=== PATIENT | male | born 1965 | race Caucasian/White ===

== ENCOUNTER 2017-07-05 17:37 | Emergency (ER) | payer BC, OTHER ==
[~2017-07-05] VITALS: Ht 177.8 cm; Wt 108.5 kg
[2017-07-05 17:49] VITALS: BP 192/96; TEMP 37; Ht 177.8 cm; Wt 108.5 kg
[2017-07-05] MEDS ORDERED: ATOR-24 PO (19:28)
--- NOTE | 2017-07-05 19:45 | DIAGNOSTIC IMAGING REPORT ---
RIGHT LOWER EXTREMITY VENOUS DOPPLER CLINICAL HISTORY: Right leg swelling. COMPARISON STUDY: No previous studies for comparison. TECHNIQUE: Sonography of the deep venous system of the right lower extremity was performed. Compression and augmentation were evaluated. FINDINGS: The right common femoral, superficial femoral and popliteal veins were compressible. Augmentation was normal. Flow was shown within the deep calf vessels. No sonographic abnormality was identified within the posterior right calf at site of maximal swelling. IMPRESSION: No evidence of deep venous thrombus within the right lower extremity. Electronically signed by: Fly Cunningham M.D. 07/05/2017 7:44 PM Dictated Date/Time: 07/05/2017 7:43 PM
[2017-07-05 20:18] VITALS: PULSE 65; O2SAT 100
--- NOTE | 2017-07-06 01:58 | EMERGENCY ROOM VISIT NOTE ---
ED Visit Note First contact with patient: 17:52 Chief Complaint: Right lower leg swelling. History of Present Illness: Mr. Santamaria is a 52-year-old white male who ambulates into the ED complaining of right lower leg swelling. Patient was referred from the [facility] for evaluation of DVT with a venous Doppler ultrasound. Historically patient reports he's been doing a lot of traveling the car. He reports approximately 2 weeks ago he started noticing some mild swelling of the right lower leg. He reports when he went to bed or elevated the leg the swelling mostly resolved but then would return the next day. Associated with his swelling he reports he was not having merly pain but his "leg just did not feel right." He has not taken any medications for his symptoms prior to arrival at the hospital. He denies any associated symptoms including chest pain /discomfort, shortness of breath, wheezing, palpitations, back pain, fevers, chills, skin eruptions, skin color changes, recent trauma, right leg weakness/ numbness/tingling, previous clots, cramping. Review of Systems: As noted above in history of present illness. Past Medical History: Dyslipidemia, migraine variant. Current Medications: Lipitor, Imitrex. Allergies to Medications: Patient denies. Social History: Patient is currently employed; he feels safe in his home environment; he denies tobacco use and admits to alcohol use. Physical Examination: Vital Signs: Date Time Temp Pulse Resp B/P (MAP) Pulse Ox O2 Delivery O2 Flow Rate FiO2 07/05/17 20:18 65 18 100 Room Air 07/05/17 17:49 37.0 66 18 192/96 99 Room Air GENERAL: 52-year-old male in no acute distress, nontoxic-appearing, afebrile and hemodynamically stable. NEUROLOGICAL: Awake, alert and oriented to person, place and time. Answering questions appropriately and following commands. Normal gait. SKIN: Warm, dry and pink. No soft tissue eruptions or trauma noted. HEENT: Atraumatic and normocephalic. THORAX: Lungs sounds are clear to auscultation and equal bilaterally with symmetrical chest wall. No wheezing, rales or rhonchi. No crepitus, tenderness , subcutaneous air or deformities noted. HEART: Regular rate and rhythm. No gallops, rubs or murmurs are appreciated. RIGHT LOWER EXTREMITY: No gross bony deformity. No shortening or malrotation. Mild swelling throughout the posterior calf. No erythema or soft tissue injuries. No tenderness over the hip, thigh, knee, calf, lower leg or ankle. Full range of motion of the hip, knee and ankle. Throughout the extremity is skin was warm and pink and capillary refill is brisk. He is able to distinguish light sensations through all dermatomes. Distal pulses are intact and equal bilaterally. No calf tenderness or cords. ED Course: Patient is assessed as noted above. Patient's medication list was reviewed. Right Lower Leg Venous Doppler Ultrasound: Was reviewed by myself and read by the radiologist and showing no evidence of deep vein thrombus. Patient was educated about today's findings and instructed on his treatment plan ; he verbalizes understanding and agreement with this plan. Clinical Impression: Right lower leg swelling. Disposition: Patient discharged home in stable condition accompanied by his . Plan: Patient was encouraged use ibuprofen or acetaminophen as needed for pain. Patient was encouraged to keep his leg elevated while at rest. Patient was encouraged to take frequent breaks on long trips as well as stay hydrated. Patient is encouraged to follow-up with family physician for recheck if no better. Patient is encouraged return ED for worsening/uncontrolled swelling, uncontrolled pain, skin redness/hotness, red streaking, fevers, chest pain, shortness of breath or any new/concerning symptoms.
== END 2017-07-05 20:19 | disposition home or self-care (01) ==
LOC: C.EDB 17:38 → C.EDD 20:19
DX: M79.89 Other specified soft tissue disorders (principal); E78.5 Hyperlipidemia, unspecified; Z79.899 Other long term (current) drug therapy